=== PATIENT | female | born 1940 | race Caucasian/White ===

== ENCOUNTER → 2016-05-28 | Outpatient (CLI) | payer OTHER, MEDICARE ==
[~2016-05-28] MED LIST: ALDACTONE25 MG PO; ALENDRONATE SOD70 MG PO; ALLOPURINOL300 MG PO; ASPIR 8181 M1 PO; ATORVASTATIN CA40 MG PO; BLACK CHERRY PO; CALCIUM + D 601 EACH PO; CEPHALEXIN500 MG PO; COLACE100 MG PO; COREG6.25 M1 PO; COREG6.25 MG PO; COZAAR25 MG PO; COZAAR50 MG PO; CYMBALTA60 MG PO; DIGOXIN125 MCG PO; DIOVAN80 MG PO; DUREZOL 0.100 DROP/5 LEFT EYE; EMLA 30 GM30 GM TP; EMLA5 GM; FISH OIL CONC1000 M1 PO; FOLIC ACID0.4 MG; FOLIC ACID0.4 MG PO; FOSAMAX70 MG PO; GABAPENTIN100 MG PO; HYDROCODON-ACE1 EA11 PO; HYDROCODON-ACE1 EAC7 PO; IRON 21/7 TABL1 EACH PO; IRON DEXTRAN IM/IV; IRON160 M1 PO; IRON27 MG PO; KLOR-CON M2020 MEQ PO; LANOXIN,DIGI0.125 MG PO; LASIX20 MG PO; LASIX40 MG PO; LASIX80 MG PO; LEVOTHROID,S0.075 MG PO; LEVOTHYROXINE75 MCG PO; LIPITOR40 MG PO; LOW DOSE ASPIRI81 M1 PO; MELOXICAM15 MG PO; NEURONTIN100 MG PO; NEURONTIN300 MG PO; SLOW RELEASE I160 MG PO; SLOW-MAG,MAG DE64 MG PO; SLOW-MAG64 MG PO; SPIRONOLACTONE25 MG PO; STOOL SOFTENER1 EACH PO; STOOL SOFTENER100 M1 PO; SYNTHROID75 MCG PO; TIZANIDINE HCL2 M1 PO; TRAMADOL HCL50 MG PO; TYLENOL ARTHRI650 M2 PO; TYLENOL ARTHRI650 MG PO; VICODIN 5-3001 EACH PO; VITAMIN D1000 INTUN PO; VITAMIN D31000 UNIT PO; ZOCOR20 MG PO; ZYLOPRIM150 MG PO
== END | disposition home or self-care (01) ==
LOC: AMB 12:47
DX: M54.6 Pain in thoracic spine (principal); M40.203 Unspecified kyphosis, cervicothoracic region; M85.80 Other specified disorders of bone density and structure, unspecified site
CPT/HCPCS: 62305; 72126; 72129